=== PATIENT | female | born 1950 | race Caucasian/White ===

== ENCOUNTER → 2017-08-22 | Outpatient (CLI) | payer MEDICARE, OTHER ==
[2017-08-22 11:31] LABS: ALT 31 U/L (9-52); AST 37 U/L (14-36); Albumin 4.2 g/dL (3.5-5.0); Alkaline Phosphatase 85 U/L (38-126); Anion Gap 12 mmol/L; Blood Urea Nitrogen 13 mg/dL (7-17); Calcium 9.7 mg/dL (8.4-10.2); Carbon Dioxide 28 mmol/L (22-30); Chloride 103 mmol/L (98-107); Glucose 96 mg/dL (74-99); Potassium 4.4 mmol/L (3.5-5.1); Sodium 143 mmol/L (137-145); Total Bilirubin 0.3 mg/dL (0.2-1.3); Total Protein 7.1 g/dL (6.3-8.2)
[2017-08-22 15:23] LABS: Vitamin D 25 Hydroxy 24.8 ng/mL (30.0-100.0)
[2017-08-22 17:20] LABS: Parathyroid Hormone Intact 30.4 pg/mL (14.0-72.0)
[2017-08-27 17:37] LABS: Creatinine Urine Random 254.9 mg/dL (20.0-320.0)
== END | disposition home or self-care (01) ==
LOC: LABWHC1 10:34
PROVIDERS: ATTEND Internal Medicine Endocrinology, Diabetes & Metabolism
DX: M81.0 Age-related osteoporosis without current pathological fracture (principal); R53.83 Other fatigue
CPT/HCPCS: 36415; 80053; 82306; 82523; 83970; 84443

== ENCOUNTER → 2019-02-03 | Outpatient (CLI) | payer MEDICARE, OTHER ==
[2019-02-03 11:32] LABS: Basophils % (A) 1 %; Eosinophils # (A) 0.1 k/uL (0-0.7); Eosinophils % (A) 3 %; HGB 11.5 gm/dL (11.4-16.0); Hypochromasia Slight; Lymphocytes # (A) 0.7 k/uL (1.0-4.8); Lymphocytes % (A) 25 %; MCH 30.4 pg (25.0-35.0); MCHC 31.2 g/dL (31.0-37.0); MCV 97.5 fL (80.0-100.0); Monocytes # (A) 0.2 k/uL (0-1.0); Monocytes % (A) 5 %; Neutrophils # (A) 1.8 k/uL (1.3-7.7); Neutrophils % (A) 65 %; Platelet Count 214 k/uL (150-450); RBC 3.79 m/uL (3.80-5.40); RDW 15.9 % (11.5-15.5); Reticulocyte % 1.7 % (0.5-2.0); WBC 2.8 k/uL (3.8-10.6)
[2019-02-03 16:31] LABS: African American GFR (CKD) 102.5 (60.0-200.0); Albumin 4.3 g/dL (3.80-4.90); Albumin/Globulin Ratio 2.15 (1.60-3.17); Anion Gap 7.1 mmol/L (4.00-12.00); BUN/Creat Ratio 15.71 Ratio (12.00-20.00); Calcium 9.2 mg/dL (8.7-10.3); Carbon Dioxide 26.9 mmol/L (21.6-31.8); Potassium 4.4 mmol/L (3.5-5.5); Total Bilirubin 0.3 mg/dL (0.2-1.2); Total Protein 6.3 g/dL (6.2-8.2)
[2019-02-03 16:45] LABS: Iron Saturation 11.3 (12.00-45.00)
== END | disposition home or self-care (01) ==
LOC: LABWHC1 09:59
PROVIDERS: ATTEND Internal Medicine
DX: D50.0 Iron deficiency anemia secondary to blood loss (chronic) (principal); Z87.19 Personal history of other diseases of the digestive system
CPT/HCPCS: 36415; 80053; 82607; 82728; 83540; 83550; 83615; 84443; 85025; 85045

== ENCOUNTER → 2021-10-05 | Outpatient (CLI) | payer MEDICARE, OTHER ==
--- NOTE | 2021-10-05 15:02 | CONS ---
CONSULTATION DATE OF SERVICE: 10/05/2021 This 71-year-old lady has [facility] for possible obstructive sleep apnea-hypopnea syndrome and episodes of fju-ck-hulce movements during sleep. HISTORY OF PRESENT ILLNESS/SLEEP-WAKE EVALUATION: The patient had a sleep study 2 years ago and according to her, she was diagnosed with mild obstructive sleep apnea. At that time she was not started on treatment. Currently her sleep schedule is from 2 a.m. until 9:30 a.m. No problems with falling asleep, although she has a TV set in the bedroom. She usually sleeps on the back position. She snores and wakes up from sleep 2 times with nocturia. During sleep she has qno-ak-npboh episodes of movements and fighting, combative episodes. No history of hypnagogic hallucinations, sleep paralysis or cataplexy. During the day, sometimes the patient takes naps in the afternoon. No vivid dreams during naps. PAST MEDICAL HISTORY: Positive for hypertension, arthritis of the knee, hands and neck, headaches, acid reflux, peptic ulcer disease, hypothyroidism, iron-deficiency anemia. PAST SURGICAL HISTORY: Cholecystectomy, appendectomy, right knee replacement. MEDICATIONS: Lisinopril, Synthroid, omeprazole, hydrocodone. Patient does not remember dosages. SOCIAL HISTORY: Negative for smoking. Alcohol consumption occasional. FAMILY HISTORY: Hypertension, arthritis, cancer. REVIEW OF SYSTEMS: Multiple awakenings from sleep, episodes of oul-yx-aimly movements. No fevers. No double vision. No recent chest pain. No shortness of breath. No abdominal pain. No bleeding episodes. No blood in the urine. No seizure episodes. PHYSICAL EXAMINATION: GENERAL: Pleasant lady without distress. VITAL SIGNS: BP 128/70, HR 77, RR 16, height 5 feet 1 inch, weight 196.8 pounds, body mass index 37, temperature 97.4, oxygen saturation at room air 99%. HEENT: PERRLA, EOMI, evaluation of oropharynx showed tongue protrudes midline. Extremely low position of soft palate; Mallampati IV. NECK: Supple, no JVD. Thyroid is not palpable. Neck measures 15 inches in circumference. LUNGS: Clear to percussion and to auscultation. Good air exchange. No wheezing or rhonchi. HEART: S1, S2 regular. No murmurs, gallops, or rubs. ABDOMEN: Obese. EXTREMITIES: No clubbing or cyanosis. ASSEMBLER MUSICAL INSTRUMENTS: Awake, alert, and oriented X3. Cranial nerves 2 to 7 intact. There is no fasciculation or atrophy. noted. No focal deficits observed. IMPRESSION: 1. Loud snoring, awakenings from sleep with nocturia, grinding teeth, extremely low position of soft palate, Mallampati IV; obstructive sleep apnea-hypopnea syndrome. 2. Episodes of nku-jz-dlell movements; possibly REM sleep behavioral disorder. 3. Obesity; body mass index 37. 4. Hypertension. 5. Headaches. 6. History of arthritis of the knee, hands, neck. 7. Acid reflux. 8. History of peptic ulcer disease. 9. Hypothyroidism. 10.History of iron-deficiency anemia. 11.Status post cholecystectomy. 12.Status post appendectomy. 13.Status post right knee replacement. PLAN: 1. Precautions related to possible REM sleep behavioral disorder. Use rodríguez-sized bed. Possibly put bed on the floor. If necessary, pharmacotherapy will be initiated after sleep apnea is controlled. 2. Polysomnography for evaluation of patient's breathing during sleep. 3. CPAP/BiPAP titration if sleep study confirms obstructive sleep apnea-hypopnea syndrome. 4. Preferable position during sleep on the side. 5. No driving if patient feels any sleepiness. 6. I will see patient for follow up visit to explain results of testing and following plan. Thank you very much for referring this patient for consultation. Sincerely, Federico Mills MD, PhD, FAASM Diplomat of [employer] Sleep Medicine [employer] of [employer] Customer Service Associate of [facility] [place] MMODL / LESAN: [id number] /
== END ==
LOC: SLEEP 13:43
PROVIDERS: ATTEND Internal Medicine
DX: G47.33 Obstructive sleep apnea (adult) (pediatric) (principal); R35.1 Nocturia; G47.63 Sleep related bruxism; E66.9 Obesity, unspecified; Z68.37 Body mass index [BMI] 37.0-37.9, adult; I10 Essential (primary) hypertension; E03.9 Hypothyroidism, unspecified; Z79.890 Hormone replacement therapy; K21.9 Gastro-esophageal reflux disease without esophagitis; Z87.39 Personal history of other diseases of the musculoskeletal system and connective tissue; Z86.2 Personal history of diseases of the blood and blood-forming organs and certain disorders involving the immune mechanism; Z90.49 Acquired absence of other specified parts of digestive tract; Z96.651 Presence of right artificial knee joint; Z88.2 Allergy status to sulfonamides
CPT/HCPCS: 99211

== ENCOUNTER → 2022-06-26 | Outpatient (CLI) | payer MEDICARE, OTHER ==
--- NOTE | 2022-06-26 15:40 | P.PN ---
Progress Note - Text Progress Note Date: 06/26/22 This is a very pleasant 72-year-old female patient was seen in consultation on 12/26/2021. Diagnosis patient having a mild case of REM behavioral disorder. She also had a mild case of obstructive sleep apnea. In terms of the REM behavioral disorder, the patient had history of recurrent dream enactment behavior. Noted those episodes were essentially mild and on 2 occasions the patient found herself falling out of the bed. Back then, the patient was offered conservative measures. She was asked to make her bedroom environment quite safe. Based on the fact that her events were that he seldom and limited, no treatment was offered. Since then, the patient lost her to cancer and currently she is living alone. She is maintaining good sleep hygiene measures. As mentioned, she is a case of mild obstructive sleep apnea and his AHI is at 6. I opted not to treat this patient. I offered her weight loss and conservative measures and she is making an active effort to lose weight. She has no dementia, no cognitive impairment, no body tremors, no history of any parkinsonism of substance abuse. No stroke Medication included Toprol, levothyroxine and omeprazole BP is 131/72 with a pulse of 84 and the respiration is 16 with a temperature 96.2 and the weight is 186 and Granby score is at 7 The patient appeared well nourished and normally developed. Vital signs as documented. Head exam is unremarkable. No scleral icterus or corneal arcus noted. Neck is without jugular venous distension, thyromegaly, or carotid bruits. Carotid upstrokes are brisk bilaterally. Lungs are clear to auscultation and percussion. Cardiac exam reveals the PMI to be normally sized and situated. Rhythm is regular. First and second heart sounds normal. No murmurs, rubs or gallops. Abdominal exam reveals normal bowel sounds, no masses, no organomegaly and no aortic enlargement. Extremities are nonedematous and both femoral and pedal pulses are normal.Examination of the skin revealed no evidence of significant rashes, suspicious appearing nevi or other concerning les ions.Neurologically, the patient is awake and alert and the patient does not have any focal neurological deficit. Cranial nerves are essentially intact. Impression REM behavioral disorder, mild case with occasional dream enactment behavior. No evidence of any neurologic impairment. No evidence of any Parkinson's disease or dementia or substance abuse. No history of any stroke. She is not receiving any pharmacotherapy at this point in time Obstructive sleep apnea mild with an AHI of 6 Hypothyroidism Osteoarthritis History of peptic ulcer disease History of chronic anemia History of acid reflux Plan No need for any treatment at this point in time. Encourage weight loss Denies any form of sleep deprivation Extensive hours on average of 7 hours if possible Maintain regular sleep hygiene measures Maintain regular sleep schedule Contact me back should there be any worsening or new onset symptoms. For now, her bedroom environment is safe and she is living alone and she has not had any dream enactment behavior. She'll be referred back to the primary care physician and she'll let me know if her condition changes.
== END ==
LOC: SLEEP 14:14
PROVIDERS: ATTEND Internal Medicine Critical Care Medicine
DX: Z53.9 Procedure and treatment not carried out, unspecified reason (principal)